=== PATIENT | male | born 1940 | race Caucasian/White ===

== ENCOUNTER 2020-09-06 09:13 | Outpatient (CLI) | payer MEDICARE, OTHER, SELFPAY ==
[2020-09-06 10:00] LABS: Basophils # 0.1 10^3/uL (0.0-0.1); Basophils % 1.1 %; Eosinophils # 0.1 10^3/uL (0.0-0.8); Eosinophils % 2.1 %; Hematocrit 41.1 % (42.0-52.0); Hemoglobin 13.3 g/dL (11.7-16.6); Lymphocytes # 1.6 10^3/uL (0.8-4.8); Lymphocytes % 25.7 %; Mean Corpuscular HGB Conc 32.4 g/dL (30.0-36.0); Mean Corpuscular Volume 83.5 fL (80-94); Mean Platelet Volume 11.4 fL (7.4-10.4); Monocytes # 0.4 10^3/uL (0.2-0.9); Monocytes % 5.9 %; Neutrophils # 3.91 10^3/uL (1.8-7.7); Neutrophils % 64.2 %; Nucleated Red Blood Cells % 0 %; Platelet Count 171 10^3/cmm (130-400); Red Blood Count 4.92 10^6/uL (4.1-5.3); Red Cell Distribution Width 13.8 % (12.1-15.1); White Blood Count 6.1 10^3/uL (4.0-10.0)
[2020-09-06 10:36] LABS: Slide Review Slide Review Perform
[2020-09-06 11:55] LABS: LAB Peripheral Smear Sent for Review
--- NOTE | 2020-09-06 13:36 | ONC CON_ITS ---
Dr. Henry New Patient Note Patient: Lawson Kerns Unit #: [id number]: 1940 Dicatated By: Ilia Henry M.D.Date of Visit: Sep 06, 2020 Onc MED New Patient/Consult Referring Physician: SYDNEY COOKP, COSTUMER History of Present Illness: Mr. Lawson Kerns, is a 80-year-old gentleman with a history of diabetes mellitus, CAD status post CABG, hypertension, hypothyroidism, BPH, found to have atypical lymphocytes reported in one of his follow-up CBC done in July 2020., His white blood count was 6.1, hemoglobin was 13.8 g hematocrit 41.8 platelets 172,000 and automated differential showed neutrophils 60% atypical lymphocytes 33%.. Patient denies any recent history of infection, sinus problem or urine tract infection patient denies any night sweats, denies any lymphadenopathy, denies any recurrent fever, patient denies any weight loss, denies any new medication.Quit smoking about 20 years ago but used to be a heavy smoker e.g. 5 packs a day for many years. Denies alcohol use. Past Medical History: Mr. Kerns's medical history consists of bph, cervical stenosis, chronic kidney disease (stage III), chronic low back pain, coronary artery disease, depression, gastroesophageal reflux disease, hyperlipidemia, hypertension, type II diabetes, history of MRSA in 2013, and myocardial infarction in 2004. Past Surgical History: Mr. Kerns's surgical/procedural history consists of coronary artery bypass in 2005. Medications: amLODIPine Besylate 1 Tablet (of 5 mg) Oral daily, Aspirin Low Dose Adult 1 Tablet (of 81 mg) Tablet, chewable Oral daily, Citalopram Hydrobromide 1 Tablet (of 20 mg) Oral daily, Famotidine 1 Tablet (of 40 mg) Oral daily, Ferrous Sulfate 1 Tablet (of 27 mg) Oral daily, Fish Oil 1 Capsule (of 1000 mg) Oral daily, hydroCHLOROthiazide 1 Tablet (of 12.5 mg) Oral daily, Lisinopril 1 Tablet (of 40 mg) Oral daily, Metoprolol Tartrate 0.5 Tablet (of 25 mg) Oral b.i.d., Simvastatin 1 Tablet (of 10 mg) Oral daily, traZODone HCl 1 Tablet (of 50 mg) Oral at bedtime, Vitamin C 2 Capsule (of 500 mg) Oral daily, Vitamin E 1 Capsule (of 400 Units) Oral daily Allergies: Amitriptyline HCl Social History: Mr. Kerns is . Mr. Kerns no longer smokes. Family History: There is no documented family history. Review Of Symptoms: Constitutional - Appetite is good and weight is stable. No fever, night sweats, or hot flashes. Energy level is fair, ENMT - No sinus congestion/drainage. No mouth sores. No sore throat or difficulty swallowing, Hematologic/Lymphatic - Positive for easy bruising, Respiratory - Positive for shortness of breath and cough. No pleuritic pain or hemoptysis, Cardiovascular - No angina pain. No palpitations, Gastrointestinal - No nausea or vomiting. No heartburn or acid reflux. Positive for diarrhea. No constipation. Positive for blood in the stool (Pt has hemorrhoids), Genitourinary (M) - No dysuria or hematuria. Positive for urinary frequency. No urgency or incontinence, Musculoskeletal - Positive for joint pain, Neurologic - No headache or dizziness. No numbness or tingling. No other focal neurologic symptoms, Psychiatric - No anxiety or depression. No insomnia. Vital Signs: Performed on Sep 06, 2020 10:56: 0, 0.00 (LOW), 97 %, 65 /min, 19 /min, 137/63 mm(hg), 97.3 F (LOW), and 189.6 lbs (HIGH). Performance Status: 0 - Fully active, able to carry on all predisease activities without restrictions. (ECOG) Physical Examination: ENMT - No mouth sores, no thrush, no jaundice, Hematologic/Lymphatic - No tender or palpable lymph nodes in the cervical, supraclavicular, axillary or inguinal area, Respiratory - Lungs are clear to auscultation, Cardiovascular - Regular rate and rhythm of heart, Abdomen - Soft, bowel sounds present, Extremities - No peripheral edema. Lab/Imaging: Most recent lab results are not available for this patient. Impression: Atypical lymphocytosis seen on differential on otherwise normal CBC done in July 2020. Etiology unclear could be reactive or subclinical viral infection or recovery from infection or medication or idiopathic or early lymphoproliferative disorder but less likely Diabetes mellitus CAD status post CABG Hypertension, hyperlipidemia, Plan: Discussed with patient regarding his labs from today white blood count 6.1 hemoglobin 13.3 hematocrit 41.1 its 171,000 with a normal differential, patient denies any B symptoms,No evidence of lymphadenopathy or abdominal fullness, denies any recent infections or new medication so etiology of atypical lymphocytosis seen on CBC done in the [facility] office, is not clear could be due to subclinical infection or viral infection or considering his age, evolving/early lymphoproliferative disorder cannot be ruled out but less likely., CBC also showed hemoglobin in normal range but hematocrit is slightly low, patient is on oral iron supplement, will monitor We will review his peripheral blood smear today and then patient will return to clinic in 1 month and we will repeat his CBC with differential. Signed By: Ilia Henry M.D. <<Signature on File>>
== END 2020-09-06 09:14 | disposition home or self-care (01) ==
LOC: ONCMED 09:18
PROVIDERS: PCP Family Medicine; Visit Provider Internal Medicine Hematology & Oncology
DX: D72.820 Lymphocytosis (symptomatic) (principal); E11.9 Type 2 diabetes mellitus without complications; I25.10 Atherosclerotic heart disease of native coronary artery without angina pectoris; Z95.1 Presence of aortocoronary bypass graft; I10 Essential (primary) hypertension; E78.5 Hyperlipidemia, unspecified; Z87.891 Personal history of nicotine dependence; Z79.899 Other long term (current) drug therapy
CPT/HCPCS: 36415; 80500; 85025; 99203

== ENCOUNTER 2020-10-17 08:37 | Outpatient (CLI) | payer MEDICARE, OTHER, SELFPAY ==
[2020-10-17 10:00] LABS: Basophils # 0.1 10^3/uL (0.0-0.1); Basophils % 1.7 %; Eosinophils # 0.3 10^3/uL (0.0-0.8); Eosinophils % 4.2 %; Hematocrit 43.5 % (42.0-52.0); Hemoglobin 14.2 g/dL (11.7-16.6); Lymphocytes % 30.8 %; Mean Corpuscular HGB Conc 32.6 g/dL (30.0-36.0); Mean Corpuscular Hemoglobin 27.3 pg (28.0-34.0); Mean Corpuscular Volume 83.5 fL (80-94); Mean Platelet Volume 12.4 fL (7.4-10.4); Monocytes # 0.4 10^3/uL (0.2-0.9); Monocytes % 6.2 %; Nucleated Red Blood Cells % 0 %; Platelet Count 173 10^3/cmm (130-400); Red Blood Count 5.21 10^6/uL (4.1-5.3); Red Cell Distribution Width 13.7 % (12.1-15.1); White Blood Count 6.4 10^3/uL (4.0-10.0)
--- NOTE | 2020-10-17 11:14 | ONC FU_ITS ---
Dr. Henry follow up note Patient: Lawson Kerns Unit #: [id number]: 1940 Dicatated By: Ilia Henry M.D.Date of Visit:Oct 17, 2020 Onc Med Follow-up/Prog Note History of Present Illness: Mr. Lawson Kerns, is a 80-year-old gentleman with a history of diabetes mellitus, CAD status post CABG, hypertension, hypothyroidism, BPH, found to have atypical lymphocytes reported in one of his follow-up CBC done in July 2020., His white blood count was 6.1, hemoglobin was 13.8 g hematocrit 41.8 platelets 172,000 and automated differential showed neutrophils 60% atypical lymphocytes 33%.. Patient denies any recent history of infection, sinus problem or urine tract infection patient denies any night sweats, denies any lymphadenopathy, denies any recurrent fever, patient denies any weight loss, denies any new medication.Quit smoking about 20 years ago but used to be a heavy smoker e.g. 5 packs a day for many years. Denies alcohol use. Came for follow-up, denies any specific complaints, no fever chills, no nausea or vomiting, no diarrhea constipation, no night sweats, no peripheral lymphadenopathy, no abdominal fullness Medications: amLODIPine Besylate 1 Tablet (of 5 mg) Oral daily, Aspirin Low Dose Adult 1 Tablet (of 81 mg) Tablet, chewable Oral daily, Citalopram Hydrobromide 1 Tablet (of 20 mg) Oral daily, Famotidine 1 Tablet (of 40 mg) Oral daily, Ferrous Sulfate 1 Tablet (of 27 mg) Oral daily, Fish Oil 1 Capsule (of 1000 mg) Oral daily, hydroCHLOROthiazide 1 Tablet (of 12.5 mg) Oral daily, Lisinopril 1 Tablet (of 40 mg) Oral daily, Metoprolol Tartrate 0.5 Tablet (of 25 mg) Oral b.i.d., Simvastatin 1 Tablet (of 10 mg) Oral daily, traZODone HCl 1 Tablet (of 50 mg) Oral at bedtime, Vitamin C 2 Capsule (of 500 mg) Oral daily, Vitamin E 1 Capsule (of 400 Units) Oral daily Allergies: Amitriptyline HCl Review of Systems: Constitutional - Appetite is good and weight is stable. No fever, night sweats, or hot flashes. Energy level is fair, ENMT - No sinus congestion/drainage. No mouth sores. No sore throat or difficulty swallowing, Hematologic/Lymphatic - Positive for easy bruising, Respiratory - Positive for shortness of breath and cough. No pleuritic pain or hemoptysis, Cardiovascular - No angina pain. No palpitations, Gastrointestinal - No nausea or vomiting. No heartburn or acid reflux. Positive for diarrhea. No constipation. Positive for blood in the stool (Pt has hemorrhoids), Genitourinary (M) - No dysuria or hematuria. Positive for urinary frequency. No urgency or incontinence, Musculoskeletal - Positive for joint pain, Neurologic - No headache or dizziness. Postivie for numbness or tingling in hands and feet, patient states this is normal for him. . No other focal neurologic symptoms, Psychiatric - No anxiety or depression. No insomnia. Vital Signs: Performed on Oct 17, 2020 10:42 Height - 68.00 in Weight - 189.4 lbs (LOW) BSA - 2.00 sq.m BMI - 28.80 Temperature - 97.6 F (LOW) Pulse - 60 /min Respiration - 18 /min BP - 133/66 mm(hg) O2 Sat - 98 % Pain - 0 Performance Status: 0 - Fully active, able to carry on all predisease activities without restrictions. (ECOG) Physical Examination: ENMT - No mouth sores, no thrush, no jaundice, no cervical or axillary lymphadenopathy, Respiratory - Lungs are clear to auscultation, Cardiovascular - Regular rate and rhythm of heart, Abdomen - Soft, bowel sounds present, Extremities - .No visible edema. Lab/Imaging: Test performed on Sep 06, 2020 09:49 WBC 6.1 10 3/uL RBC 4.92 10 6/uL HGB 13.3 g/dL HCT 41.1 % MCV 83.5 fL MCH 27.0 pg MCHC 32.4 g/dL RDW 13.8 % Platelet Count 171 10 3/cmm MPV 11.4 fL Neutrophils 3.91 10 3/uL Lymphocytes 1.6 10 3/uL Monocytes 0.4 10 3/uL Eosinophils 0.1 10 3/uL Basophils 0.1 10 3/uL Neutrophil % 64.2 % Lymphocyte % 25.7 % Monocyte % 5.9 % Eosinophil % 2.1 % Basophils % 1.1 % NRBC % 0 % CBC Slide Review Slide Review Perform SLIDE REVIEW AGREES WITH AUTOMATED RESULTS ST Impression: Atypical lymphocytosis seen on differential on otherwise normal CBC done in July 2020. Etiology unclear could be reactive or subclinical viral infection or recovery from infection or medication or idiopathic or early lymphoproliferative disorder but less likely Diabetes mellitus CAD status post CABG Hypertension, hyperlipidemia, Plan: Discussed with patient regarding his labs white blood count 6.4 hemoglobin 14.2 hematocrit 43.5 platelets 173,000 with a normal differential and peripheral blood smear reviewed by pathologist on September 06, 2020 shows normal white blood cell morphology Clinically, patient is doing well with no new signs symptoms his follow-up CBC shows white blood count in normal range with a normal differential and normal hemoglobin and platelet count. Patient has no B signs symptoms. No further work-up at this point rather observation, as etiology of mild atypical lymphocytosis could be due to underlying subclinical infection, which has resolved now and his repeat lab work-up showed normal CBC with a differential. Will see him back in 3 months with CBC with differential Signed By: Ilia Henry M.D. <<Signature on File>>
== END 2020-10-17 08:38 | disposition home or self-care (01) ==
LOC: ONCMED 08:39
PROVIDERS: PCP Family Medicine; Visit Provider Internal Medicine Hematology & Oncology
DX: D72.820 Lymphocytosis (symptomatic) (principal); E11.9 Type 2 diabetes mellitus without complications; I25.10 Atherosclerotic heart disease of native coronary artery without angina pectoris; Z95.1 Presence of aortocoronary bypass graft; I10 Essential (primary) hypertension; E78.5 Hyperlipidemia, unspecified
CPT/HCPCS: 36415; 85025; G0463

== ENCOUNTER 2021-01-16 10:15 | Outpatient (CLI) | payer MEDICARE, OTHER, SELFPAY ==
[2021-01-16 12:13] LABS: Basophils # 0.1 10^3/uL (0.0-0.1); Basophils % 1.1 %; Eosinophils # 0.2 10^3/uL (0.0-0.8); Hematocrit 40.5 % (42.0-52.0); Hemoglobin 13.4 g/dL (11.7-16.6); Lymphocytes # 1.3 10^3/uL (0.8-4.8); Lymphocytes % 24.8 %; Mean Corpuscular HGB Conc 33.1 g/dL (30.0-36.0); Mean Corpuscular Hemoglobin 27.3 pg (28.0-34.0); Mean Corpuscular Volume 82.7 fL (80-94); Mean Platelet Volume 12.1 fL (7.4-10.4); Monocytes # 0.3 10^3/uL (0.2-0.9); Monocytes % 5.9 %; Neutrophils # 3.36 10^3/uL (1.8-7.7); Neutrophils % 64.1 %; Nucleated Red Blood Cells % 0 %; Platelet Count 174 10^3/cmm (130-400); White Blood Count 5.3 10^3/uL (4.0-10.0)
[2021-01-16 12:36] LABS: Slide Review Slide Review Perform
--- NOTE | 2021-01-16 15:46 | ONC FU_ITS ---
Dr. Henry follow up note Patient: Lawson Kerns Unit #: [id number]: 1940 Dicatated By: Ilia Henry M.D.Date of Visit:Jan 16, 2021 Onc Med Follow-up/Prog Note History of Present Illness: Mr. Lawson Kerns, is a 80-year-old gentleman with a history of diabetes mellitus, CAD status post CABG, hypertension, hypothyroidism, BPH, found to have atypical lymphocytes reported in one of his follow-up CBC done in July 2020., His white blood count was 6.1, hemoglobin was 13.8 g hematocrit 41.8 platelets 172,000 and automated differential showed neutrophils 60% atypical lymphocytes 33%.. Patient denies any recent history of infection, sinus problem or urine tract infection patient denies any night sweats, denies any lymphadenopathy, denies any recurrent fever, patient denies any weight loss, denies any new medication.Quit smoking about 20 years ago but used to be a heavy smoker e.g. 5 packs a day for many years. Denies alcohol use. Came for follow-up, denies any specific complaints, no fever chills, no nausea or vomiting, no diarrhea constipation, no peripheral lymphadenopathy, no abdominal fullness, no night sweats, no weight loss, no recurrent fevers Medications: amLODIPine Besylate 1 Tablet (of 5 mg) Oral daily, Aspirin Low Dose Adult 1 Tablet (of 81 mg) Tablet, chewable Oral daily, Citalopram Hydrobromide 1 Tablet (of 20 mg) Oral daily, Famotidine 1 Tablet (of 40 mg) Oral daily, Ferrous Sulfate 1 Tablet (of 27 mg) Oral daily, Fish Oil 1 Capsule (of 1000 mg) Oral daily, hydroCHLOROthiazide 1 Tablet (of 12.5 mg) Oral daily, Lisinopril 1 Tablet (of 40 mg) Oral daily, Metoprolol Tartrate 0.5 Tablet (of 25 mg) Oral b.i.d., Simvastatin 1 Tablet (of 10 mg) Oral daily, traZODone HCl 1 Tablet (of 50 mg) Oral at bedtime, Vitamin C 2 Capsule (of 500 mg) Oral daily, Vitamin E 1 Capsule (of 400 Units) Oral daily Allergies: Amitriptyline HCl Review of Systems: Review of Systems is not available for this patient. Vital Signs: Performed on Jan 16, 2021 13:02 Height - 68.00 in Weight - 191.6 lbs (HIGH) BSA - 2.01 sq.m BMI - 29.13 Temperature - 99 F (HIGH) Pulse - 89 /min Respiration - 18 /min BP - 140/59 mm(hg) O2 Sat - 99 % Pain - 0 Fatigue - 0 Performance Status: 0 - Fully active, able to carry on all predisease activities without restrictions. (ECOG) Physical Examination: ENMT - No mouth sores, no thrush, no jaundice, no peripheral lymphadenopathy, Respiratory - Lungs are clear to auscultation, Cardiovascular - Regular rate and rhythm of heart, Abdomen - Soft, bowel sounds present, Extremities - No visible edema. Lab/Imaging: Test performed on Oct 17, 2020 08:50 WBC 6.4 10 3/uL RBC 5.21 10 6/uL HGB 14.2 g/dL HCT 43.5 % MCV 83.5 fL MCH 27.3 pg MCHC 32.6 g/dL RDW 13.7 % Platelet Count 173 10 3/cmm MPV 12.4 fL Neutrophils 3.60 10 3/uL Lymphocytes 2.0 10 3/uL Monocytes 0.4 10 3/uL Eosinophils 0.3 10 3/uL Basophils 0.1 10 3/uL Neutrophil % 56.0 % Lymphocyte % 30.8 % Monocyte % 6.2 % Eosinophil % 4.2 % Basophils % 1.7 % NRBC % 0 % Test performed on Sep 06, 2020 09:49 CBC Slide Review Slide Review Perform SLIDE REVIEW AGREES WITH AUTOMATED RESULTS ST Impression: Atypical lymphocytosis seen on differential on otherwise normal CBC done in July 2020. Etiology unclear could be reactive or subclinical viral infection or recovery from infection or medication or idiopathic or early lymphoproliferative disorder but less likely Diabetes mellitus CAD status post CABG Hypertension, hyperlipidemia, Plan: Discussed with patient regarding his labs white blood count 5.3 hemoglobin 13.4 hematocrit 40.5 platelets 174,000 neutrophils 64% lymphocyte 24.8% Clinically, patient doing well with no new signs symptom suggestive of lymphoproliferative disorder, his follow-up labs shows normal CBC with normal differential. Discussed with pathology, peripheral blood smear shows no abnormality, on physical exam no peripheral lymphadenopathy, no organomegaly. No further work-up at this point, will see him on as-needed basis. Signed By: Ilia Henry M.D. <<Signature on File>>
== END 2021-01-16 10:16 | disposition home or self-care (01) ==
LOC: ONCMED 10:18
PROVIDERS: PCP Family Medicine; Visit Provider Internal Medicine Hematology & Oncology
DX: D72.820 Lymphocytosis (symptomatic) (principal); E11.9 Type 2 diabetes mellitus without complications; I25.10 Atherosclerotic heart disease of native coronary artery without angina pectoris; I10 Essential (primary) hypertension; E78.5 Hyperlipidemia, unspecified; Z95.5 Presence of coronary angioplasty implant and graft
CPT/HCPCS: 36415; 85025; G0463

== ENCOUNTER 2021-03-01 08:07 | Outpatient (CLI) | payer OTHER, SELFPAY ==
--- NOTE | 2021-03-01 08:18 | XR_ITS ---
WS: [id number] Right hand, AP and lateral views, 03/01/2021 Clinical Data: R HAND FX Comparison: None. Findings: No fractures or dislocations are seen. The soft tissues are unremarkable. There is osteoa rthritic changes of the DIP and PIP joints of the second through fifth fingers of the right hand. Th ere is osteoarthritic change of the head of the right fifth metacarpal. There is degenerative change at the base of the right first metacarpal and trapezium.Soft tissues are normal. XR/XR hand RT 2V [id number] Impression: 1. Negative for fracture. 2. 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
== END 2021-03-01 08:08 | disposition home or self-care (01) ==
LOC: RAD 08:12
PROVIDERS: PCP Family Medicine; Visit Provider Orthopaedic Surgery
DX: S62.91XA Unspecified fracture of right hand, initial encounter for closed fracture (principal); X58.XXXA Exposure to other specified factors, initial encounter
CPT/HCPCS: 73120

== ENCOUNTER 2021-07-04 13:34 | Emergency (ER) | payer MEDICARE, OTHER, SELFPAY ==
--- NOTE | 2021-07-04 13:43 | ECG_ITS ---
[facility] Test Date: 2021-07-04 Pat Name: Lawson Kerns Department: Room: Gender: Male Lepidopterist: : 1940 Requested By: Flaca Stacy Order Number: [id number] Reading MD: KALYAN MORALES Measurements Intervals [place] Rate: 58 P: 47 FL: 206 QRS: 71 QRSD: 150 T: 32 QT: 431 QTc: 426 Interpretive Statements SINUS BRADYCARDIA RIGHT BUNDLE BRANCH BLOCK [120+ ms QRS DURATION, UPRIGHT V1, 40+ ms S IN I/aVL/V4/V5/V6] No previous ECG available for comparison Electronically Signed On 07-04-2021 21:07:40 CDT by KALYAN MORALES [email or web address]
--- NOTE | 2021-07-04 13:43 | XR_ITS ---
WS: [id number] Exam: XR chest 1V portable [id number] Date/Time of Exam: 07/04/2021 1:59 PM Reason For Exam: chest pain Comparison 03/13/2006. The lungs are hyperinflated and clear. Heart size is normal. The mediastinum is not widened. Signs of previous CABG surgery. No pleural effusions. XR/XR chest 1V portable [id number] IMPRESSION: 1. Pulmonary hyperinflation which may indicate obstructive lung disease. 2. No acute process noted.
[2021-07-04 13:49] VITALS: BP 165/77; PULSE 59; RESP 18; TEMP 36.7; O2SAT 97; BMI 28.3
--- NOTE | 2021-07-04 14:01 | ED_ITS ---
Documented by User: JEAN Medley 07/04/21 16:37 HPI - Chest Pain General: Chief Complaint: Chest Pain Stated Complaint: chest pain Time Seen by Provider: 07/04/21 13:52 Source: patient Mode of arrival: ambulatory Limitations: no limitations History of Present Illness: HPI narrative: Patient is an 80-year-old male who presents to ED today with a complaint of left sided chest pain with radiation into his back is been present over the past week. Patient states symptoms initially started while at rest. He states pain has been constant since onset and does not seem to be worsening. Pain does not seem to be affected by position, movement, or exertion. He does not complain of shortness of breath or difficulty breathing. Patient does have a history of coronary bypass surgery performed several years ago. He has a snapper on in [place]. Patient is not sure when his last echocardiogram was. He states he was seen by PCP and had abnormal blood work so was sent to the ED for further evaluation. states he has a hx of CHF. He does not complain of orthopnea or LE swelling. MD complaint: chest pain Pertinent past history: coronary artery disease Onset (ago): day(s) Timing of current episode: constant Onset: during rest Pain location: left chest Pain radiation: back and left scapula Relieving factors: nothing Exacerbating factors: nothing Associated symptoms: Reports no associated symptoms; Deny abdominal pain, dyspnea, fever(s), nausea, palpitations, syncope or vomiting Treatment prior to arrival: none Review of Systems Const: Denies: fever(s), chills, body aches, fatigue or malaise Eyes: Denies: change in vision or blurry vision ENMT: Denies: throat pain or odynophagia Card: Reports: chest pain; Denies: palpitations, irregular heart rhythm, edema, swelling of feet/ankles, lightheadedness, syncope, pre-syncope, dyspnea on exertion, orthopnea, leg pain with exertion or acrocyanosis Resp: Denies: dyspnea, productive cough, pain on inspiration, hemoptysis or chest congestion GI: Denies: abdominal pain, nausea, vomiting, heartburn or diarrhea : Denies: flank pain, difficulty urinating or dysuria Musc: Reports: back pain (reports chest pain radiates to back); Denies: neck pain, extremity pain, extremity swelling, joint pain or joint swelling Skin/Breast: Denies: rash Neuro: Denies: headache(s), numbness in extremities, weakness in extremities, sensory changes or dizziness PFSH ED PFSH: Medical History (Updated 07/04/21 @ 19:14 by LULU Stout) Benign non-nodular prostatic hyperplasia with lower urinary tract symptoms Cervical spondylosis Coronary artery disease Hyperlipidemia Left eye injury PVD (peripheral vascular disease) Urinary catheter insertion/adjustment/removal Urinary retention Surgical History Hx of eye surgery Hx of heart surgery Hx of neck surgery Family History Mother Stroke Father Heart disease Denies family history of Diabetes CAD (coronary artery disease) Clotting disorder Dementia Hyperlipidemia Psychiatric illness Chronic kidney disease (CKD) Suicide Anesthesia complication Bleeding disorder Family history of premature coronary artery disease Lung disease Cancer Hypertension Social History Smoking and tobacco status: never smoked Alcohol intake: never Current occupational status: retired Physical Exam Const: COMMON NORMALS: no acute distress, average body habitus, patient oriented x3, no limitations, healthy appearing, alert and well nourished GENERAL APPEARANCE: cooperative ORIENTATION/CONSCIOUSNESS: Yes awake, Yes oriented to person, Yes oriented to place and Yes oriented to time HENMT: COMMON NORMALS: normocephalic and atraumatic HEAD & SCALP: normocephalic and atraumatic Neck/C-Spine: GENERAL: Yes normal visual inspection and No JVD Chest: COMMONS NORMALS: normal inspection of the chest and normal palpation of entire chest wall Resp: COMMON NORMALS: normal respiratory effort and clear to auscultation bilaterally AUSCULTATION: clear to auscultation bilaterally Cardio: COMMON NORMALS: regular rate and regular rhythm RATE: regular rate RHYTHM: regular rhythm : COMMON NORMALS: Yes no CVA tenderness BLADDER/KIDNEY EXAM: Yes no CVA tenderness Back/Pelvis: COMMON NORMALS: no CVA tenderness, thoracic and lumbar spine normal to inspection, no thoracic nor lumbar tenderness and thoraco-lumbar ROM normal THORACIC SPINE/UPPER BACK: Yes normal to inspection LUMBAR SPINE/LOWER BACK: Yes normal to inspection Extremity: COMMON NORMALS: normal to inspection, full ROM, capillary refill normal, no clubbing, cyanosis or edema, no calf tenderness and no pedal edema Neuro: COMMON NORMALS: patient oriented x3 SENSORIUM/ORIENTATION: Yes alert, Yes oriented to person, Yes oriented to place and Yes oriented to time Skin: COMMON NORMALS: no rashes or lesions noted GENERAL SKIN EXAM: no rashes or lesions noted Course ED course: Results from [facility] faxed which showed a troponin of 49 Vital Signs: Vital signs: Vital Signs Temperature 98.1 F 07/04/21 13:49 Pulse Rate 58 L 07/04/21 18:50 Respiratory Rate 16 07/04/21 18:50 Blood Pressure 154/72 07/04/21 18:50 Pulse Oximetry 97 07/04/21 18:50 MDM - Chest Pain Lab Data: Labs: Lab Results 07/04/21 07/04/21 07/04/21 Range/Units 14:10 14:10 14:10 WBC 5.9 (4.0-10.0) 10^3/ uL RBC 5.07 (4.1-5.3) 10^6/u L Hgb 13.8 (11.7-16.6) g/dL Hct 43.0 (42.0-52.0) % MCV 84.8 (80-94) fl MCH 27.2 L (28.0-34.0) pg MCHC 32.1 (30.0-36.0) g/dL RDW 15.2 H (12.1-15.1) % Plt Count 179 (130-400) 10^3/c mm MPV 11.6 H (7.4-10.4) fL Neut % (Auto) 51.8 % Lymph % (Auto) 36.1 % [place] % (Auto) 7.0 % Eos % (Auto) 2.7 % Baso % (Auto) 1.5 % Neut # (Auto) 3.03 (1.8-7.7) 10^3/u L Lymph # (Auto) 2.1 (0.8-4.8) 10^3/u L [place] # (Auto) 0.4 (0.2-0.9) 10^3/u L Eos # (Auto) 0.2 (0.0-0.8) 10^3/u L Baso # (Auto) 0.1 (0.0-0.1) 10^3/u L Nucleated RBC % (a uto) 0 % Nucleated RBCs # 0.0 /100WBC Sodium Cancelled Potassium Cancelled Chloride Cancelled Carbon Dioxide Cancelled Anion Gap Cancelled BUN Cancelled Creatinine Cancelled GFR Calculation Cancelled Glucose Cancelled Calculated Osmolal ity Cancelled Calcium Cancelled Total Bilirubin Cancelled AST Cancelled ALT Cancelled Alkaline Phosphata se Cancelled Troponin T Baselin e Cancelled Troponin T 120 Min [place] (0-15) ng/L Delta Troponin T (0-10) ABS# NT-Pro-B Natriuret Pep Cancelled Total Protein Cancelled Albumin Cancelled Globulin Cancelled 07/04/21 07/04/21 07/04/21 Range/Units 15:44 15:44 17:55 WBC (4.0-10.0) 10^3/ uL RBC (4.1-5.3) 10^6/u L Hgb (11.7-16.6) g/dL Hct (42.0-52.0) % MCV (80-94) fl MCH (28.0-34.0) pg MCHC (30.0-36.0) g/dL RDW (12.1-15.1) % Plt Count (130-400) 10^3/c mm MPV (7.4-10.4) fL Neut % (Auto) % Lymph % (Auto) % [place] % (Auto) % Eos % (Auto) % Baso % (Auto) % Neut # (Auto) (1.8-7.7) 10^3/u L Lymph # (Auto) (0.8-4.8) 10^3/u L [place] # (Auto) (0.2-0.9) 10^3/u L Eos # (Auto) (0.0-0.8) 10^3/u L Baso # (Auto) (0.0-0.1) 10^3/u L Nucleated RBC % (a uto) % Nucleated RBCs # /100WBC Sodium 132 L Potassium 4.2 Chloride 97 L Carbon Dioxide 28 Anion Gap 11.2 BUN 22 Creatinine 1.2 GFR Calculation Not Reportable Glucose 83 Calculated Osmolal ity 276 L Calcium 8.8 Total Bilirubin 0.3 AST 20 ALT 20 Alkaline Phosphata se 50 Troponin T Baselin e 44 H Troponin T 120 Min [place] 42.76 H (0-15) ng/L Delta Troponin T -1.24 L (0-10) ABS# NT-Pro-B Natriuret Pep 530 H Total Protein 7.0 Albumin 4.0 Globulin 3.0 Imaging Data^: CXR: Radiologist's impression: [id number] [place], [place] [address]DNtr ReportSigned Patient: Lawson Kerns AUnit #: [id number]: 1940cct#:[id number]/Sex: 80 / MADM Date: 07/04/21Loc: ERRoom/Bed:Attending Dr: Ordering Provider/Ordering MD: Flaca Stacy Date of Service: 07/04/21 Procedure(s): XR chest 1V portable [id number] Accession Number(s): [id number] Report Number: [id number] WS: [id number] Exam: XR chest 1V portable [id number] Date/Time of Exam: 07/04/2021 1:59 PM Reason For Exam: chest pain Comparison 03/13/2006. The lungs are hyperinflated and clear. Heart size is normal. The mediastinum is not widened. Signs of previous CABG surgery. No pleural effusions. XR/XR chest 1V portable [id number] IMPRESSION: 1. Pulmonary hyperinflation which may indicate obstructive lung disease. 2. No acute process noted. Dictated By:Mariza Moody By:Mariza Moody Date/Time:07/04/21 1405DD/ 1404 EKG Data^: EKG 1: EKG interpretation date: 07/04/21 EKG interpretation time: 13:46 Interpretation: Sinus bradycardia Rate [address] elevation or depression changes noted Also signed off by Dr. Salinas EKG 2: EKG interpretation date: 07/04/21 EKG interpretation time: 15:43 Interpretation: Sinus bradycardia Rate [address] elevation or depression changes noted No acute changes were noted from EKG performed earlier on same visit Discharge Plan Discharge Patient Disposition: Home Clinical Impression: Peripheral arterial disease Chest pain Qualifiers: Chest pain type: unspecified Qualified Code(s): R07.9 - Chest pain, unspecified Condition: Stable Prescriptions: No Action citalopram 20 mg tablet 20 mg PO DAILY RF: 0 hydrochlorothiazide 12.5 mg capsule 12.5 mg PO QAM RF: 0 vitamin E (dl, acetate) 400 unit capsule 400 unit PO QAM RF: 0 ferrous sulfate [iron] 325 mg (65 mg iron) tablet 325 mg PO QAM RF: 0 cinnamon bark [Cinnamon] 500 mg capsule 500 mg PO QAM RF: 0 omega-3 fatty acids [Fish Oil Concentrate] 1,000 mg capsule 1,000 mg PO QAM RF: 0 amlodipine 5 mg tablet 5 mg PO QAM RF: 0 trazodone 50 mg tablet 25 mg PO BEDTIME RF: 0 nitroglycerin [Nitrostat] 0.4 mg tablet, sublingual 0.4 mg SUBLINGUAL Q5M PRN (Reason: Chest Pain) RF: 0 Lantus Solostar U-100 Insulin 100 unit/mL (3 mL) insulin pen 30 unit SUBCUT QAM RF: 0 lisinopril 40 mg tablet 40 mg PO QAM RF: 0 aspirin 81 mg tablet,delayed release (DR/EC) 81 mg PO QAM RF: 0 Apple Cider Vinegar Liquid 2 tbsp PO QAM RF: 0 albuterol sulfate 2.5 mg /3 mL (0.083 %) Solution For Nebulization 2.5 mg INHALATION Q4H PRN (Reason: Shortness Of Breath) RF: 0 famotidine 40 mg tablet 40 mg PO BEDTIME RF: 0 simvastatin 10 mg tablet 10 mg PO QAM RF: 0 Vitamin C 500 mg Tablet 500 mg PO QAM RF: 0 ProAir HFA 90 mcg/actuation Hfa Aerosol Inhaler 2 puff INHALATION QID PRN (Reason: Shortness Of Breath) RF: 0 aloe vera 25 mg Capsule 25 mg PO QAM RF: 0 metoprolol tartrate 25 mg tablet 12.5 mg PO BID RF: 0 Discharge Orders: Discharge ED (Routine); Ordered 07/04/21 Ordered By: Bartolo Silverio Referrals: Cindy Schroeder DO [Primary Care Provider] - Discharge Diet: Usual diet Discharge Activity: Increase activity as tolerated Patient Instructions: Chest Pain (ED), Opioid Safety Activity Restrictions/Additional Instructions: Home and rest. Continue with routine medications and care plan. Follow-up with primary care as needed. Contact snapper on office tomorrow for follow-up appointment. Return to the ER for worsening symptoms or new concerns. Sign Out Sign Out Data: Patient Sign Out occurred on 07/04/21 at 17:13. Patient's care was discussed, and care was transferred from to Bartolo Silverio. Coding Level of Care Code ED Motorcycle Police Officer for Chg Fwd Exam Comprehensive Documented by User: LULU Stout 07/04/21 19:19 HPI - Chest Pain General: Chief Complaint: Chest Pain Stated Complaint: chest pain Time Seen by Provider: 07/04/21 13:52 PFSH ED PFSH: Medical History (Updated 07/04/21 @ 19:14 by LULU Stout) Benign non-nodular prostatic hyperplasia with lower urinary tract symptoms Cervical spondylosis Coronary artery disease Hyperlipidemia Left eye injury PVD (peripheral vascular disease) Urinary catheter insertion/adjustment/removal Urinary retention Surgical History Hx of eye surgery Hx of heart surgery Hx of neck surgery Family History Mother Stroke Father Heart disease Denies family history of Diabetes CAD (coronary artery disease) Clotting disorder Dementia Hyperlipidemia Psychiatric illness Chronic kidney disease (CKD) Suicide Anesthesia complication Bleeding disorder Family history of premature coronary artery disease Lung disease Cancer Hypertension Social History Smoking and tobacco status: never smoked Alcohol intake: never Current occupational status: retired Course Vital Signs: Vital signs: Vital Signs Temperature 98.1 F 07/04/21 13:49 Pulse Rate 58 L 07/04/21 18:50 Respiratory Rate 16 07/04/21 18:50 Blood Pressure 154/72 07/04/21 18:50 Pulse Oximetry 97 07/04/21 18:50 MDM - Chest Pain MDM Narrative: Medical decision making narrative: Patient comes in today with some episodes of chest discomfort on and off for the last week. Patient reports that he had seen his primary care and they done some lab work that showed a troponin of 49. Patient was referred to the ER for further evaluation regarding his chest discomfort. On exam patient appears well. Heart rates regular and mildly bradycardic in the 50s. No edema is noted in the extremities and lungs are clear to auscultation. Differential diagnosis include ACS, CHF, stable angina. No changes were noted in the patient's troponin they stayed in the 40s with a negative delta curve. Laboratory values otherwise were normal. Chest x- ray was normal. BNP was slightly elevated at 500. No signs of CHF was noted at this time. I reviewed the exam with patient with recommendations for follow-up with snapper on. Patient reports he will contact his snapper on tomorrow for follow-up appointment. Patient agreed to this plan and need for follow-up or return to the ER for worsening symptoms. Lab Data: Labs: Lab Results 07/04/21 07/04/21 07/04/21 Range/Units 14:10 14:10 14:10 WBC 5.9 (4.0-10.0) 10^3/ uL RBC 5.07 (4.1-5.3) 10^6/u L Hgb 13.8 (11.7-16.6) g/dL Hct 43.0 (42.0-52.0) % MCV 84.8 (80-94) fl MCH 27.2 L (28.0-34.0) pg MCHC 32.1 (30.0-36.0) g/dL RDW 15.2 H (12.1-15.1) % Plt Count 179 (130-400) 10^3/c mm MPV 11.6 H (7.4-10.4) fL Neut % (Auto) 51.8 % Lymph % (Auto) 36.1 % [place] % (Auto) 7.0 % Eos % (Auto) 2.7 % Baso % (Auto) 1.5 % Neut # (Auto) 3.03 (1.8-7.7) 10^3/u L Lymph # (Auto) 2.1 (0.8-4.8) 10^3/u L [place] # (Auto) 0.4 (0.2-0.9) 10^3/u L Eos # (Auto) 0.2 (0.0-0.8) 10^3/u L Baso # (Auto) 0.1 (0.0-0.1) 10^3/u L Nucleated RBC % (a uto) 0 % Nucleated RBCs # 0.0 /100WBC Sodium Cancelled Potassium Cancelled Chloride Cancelled Carbon Dioxide Cancelled Anion Gap Cancelled BUN Cancelled Creatinine Cancelled GFR Calculation Cancelled Glucose Cancelled Calculated Osmolal ity Cancelled Calcium Cancelled Total Bilirubin Cancelled AST Cancelled ALT Cancelled Alkaline Phosphata se Cancelled Troponin T Baselin e Cancelled Troponin T 120 Min [place] (0-15) ng/L Delta Troponin T (0-10) ABS# NT-Pro-B Natriuret Pep Cancelled Total Protein Cancelled Albumin Cancelled Globulin Cancelled 07/04/21 07/04/21 07/04/21 Range/Units 15:44 15:44 17:55 WBC (4.0-10.0) 10^3/ uL RBC (4.1-5.3) 10^6/u L Hgb (11.7-16.6) g/dL Hct (42.0-52.0) % MCV (80-94) fl MCH (28.0-34.0) pg MCHC (30.0-36.0) g/dL RDW (12.1-15.1) % Plt Count (130-400) 10^3/c mm MPV (7.4-10.4) fL Neut % (Auto) % Lymph % (Auto) % [place] % (Auto) % Eos % (Auto) % Baso % (Auto) % Neut # (Auto) (1.8-7.7) 10^3/u L Lymph # (Auto) (0.8-4.8) 10^3/u L [place] # (Auto) (0.2-0.9) 10^3/u L Eos # (Auto) (0.0-0.8) 10^3/u L Baso # (Auto) (0.0-0.1) 10^3/u L Nucleated RBC % (a uto) % Nucleated RBCs # /100WBC Sodium 132 L Potassium 4.2 Chloride 97 L Carbon Dioxide 28 Anion Gap 11.2 BUN 22 Creatinine 1.2 GFR Calculation Not Reportable Glucose 83 Calculated Osmolal ity 276 L Calcium 8.8 Total Bilirubin 0.3 AST 20 ALT 20 Alkaline Phosphata se 50 Troponin T Baselin e 44 H Troponin T 120 Min [place] 42.76 H (0-15) ng/L Delta Troponin T -1.24 L (0-10) ABS# NT-Pro-B Natriuret Pep 530 H Total Protein 7.0 Albumin 4.0 Globulin 3.0 Discharge Plan Discharge Patient Disposition: Home Clinical Impression: Peripheral arterial disease Chest pain Qualifiers: Chest pain type: unspecified Qualified Code(s): R07.9 - Chest pain, unspecified Condition: Stable Prescriptions: No Action citalopram 20 mg tablet 20 mg PO DAILY RF: 0 hydrochlorothiazide 12.5 mg capsule 12.5 mg PO QAM RF: 0 vitamin E (dl, acetate) 400 unit capsule 400 unit PO QAM RF: 0 ferrous sulfate [iron] 325 mg (65 mg iron) tablet 325 mg PO QAM RF: 0 cinnamon bark [Cinnamon] 500 mg capsule 500 mg PO QAM RF: 0 omega-3 fatty acids [Fish Oil Concentrate] 1,000 mg capsule 1,000 mg PO QAM RF: 0 amlodipine 5 mg tablet 5 mg PO QAM RF: 0 trazodone 50 mg tablet 25 mg PO BEDTIME RF: 0 nitroglycerin [Nitrostat] 0.4 mg tablet, sublingual 0.4 mg SUBLINGUAL Q5M PRN (Reason: Chest Pain) RF: 0 Lantus Solostar U-100 Insulin 100 unit/mL (3 mL) insulin pen 30 unit SUBCUT QAM RF: 0 lisinopril 40 mg tablet 40 mg PO QAM RF: 0 aspirin 81 mg tablet,delayed release (DR/EC) 81 mg PO QAM RF: 0 Apple Cider Vinegar Liquid 2 tbsp PO QAM RF: 0 albuterol sulfate 2.5 mg /3 mL (0.083 %) Solution For Nebulization 2.5 mg INHALATION Q4H PRN (Reason: Shortness Of Breath) RF: 0 famotidine 40 mg tablet 40 mg PO BEDTIME RF: 0 simvastatin 10 mg tablet 10 mg PO QAM RF: 0 Vitamin C 500 mg Tablet 500 mg PO QAM RF: 0 ProAir HFA 90 mcg/actuation Hfa Aerosol Inhaler 2 puff INHALATION QID PRN (Reason: Shortness Of Breath) RF: 0 aloe vera 25 mg Capsule 25 mg PO QAM RF: 0 metoprolol tartrate 25 mg tablet 12.5 mg PO BID RF: 0 Discharge Orders: Discharge ED (Routine); Ordered 07/04/21 Ordered By: Bartolo Silverio Referrals: Cindy Schroeder DO [Primary Care Provider] - Discharge Diet: Usual diet Discharge Activity: Increase activity as tolerated Patient Instructions: Chest Pain (ED), Opioid Safety Activity Restrictions/Additional Instructions: Home and rest. Continue with routine medications and care plan. Follow-up with primary care as needed. Contact snapper on office tomorrow for follow-up appointment. Return to the ER for worsening symptoms or new concerns. Sign Out Sign Out Data: Patient Sign Out occurred on 07/04/21 at 17:13. Patient's care was discussed, and care was transferred from to Bartolo Silverio. Coding Level of Care Code ED Motorcycle Police Officer for Chg Fwd Exam Comprehensive
[2021-07-04 14:26] LABS: Basophils # 0.1 10^3/uL (0.0-0.1); Basophils % 1.5 %; Eosinophils # 0.2 10^3/uL (0.0-0.8); Eosinophils % 2.7 %; Hemoglobin 13.8 g/dL (11.7-16.6); Lymphocytes # 2.1 10^3/uL (0.8-4.8); Lymphocytes % 36.1 %; Mean Corpuscular HGB Conc 32.1 g/dL (30.0-36.0); Mean Corpuscular Hemoglobin 27.2 pg (28.0-34.0); Mean Corpuscular Volume 84.8 fl (80-94); Mean Platelet Volume 11.6 fL (7.4-10.4); Monocytes # 0.4 10^3/uL (0.2-0.9); Neutrophils # 3.03 10^3/uL (1.8-7.7); Neutrophils % 51.8 %; Nucleated Red Blood Cells % 0 %; Platelet Count 179 10^3/cmm (130-400); Positive M 1; Red Blood Count 5.07 10^6/uL (4.1-5.3); Red Cell Distribution Width 15.2 % (12.1-15.1); White Blood Count 5.9 10^3/uL (4.0-10.0)
[2021-07-04 14:52] VITALS: BP 126/66; PULSE 54; RESP 18; O2SAT 97
[2021-07-04 15:21] LABS: Slide Review Slide Review Perform
--- NOTE | 2021-07-04 15:43 | ECG_ITS ---
[facility] Test Date: 2021-07-04 Pat Name: Lawson Kerns Department: Room: Gender: Male Storeroom Attendant: : 1940 Requested By: Flaca Stacy Order Number: [id number] Reading MD: KALYAN MORALES Measurements Intervals [place] Rate: 54 P: 58 SD: 216 QRS: 72 QRSD: 149 T: 32 QT: 426 QTc: 405 Interpretive Statements SINUS BRADYCARDIA WITH FIRST DEGREE AV BLOCK RIGHT BUNDLE BRANCH BLOCK [120+ ms QRS DURATION, UPRIGHT V1, 40+ ms S IN I/aVL/V4/V5/V6] Compared to ECG 07/04/2021 13:46:06 First degree AV block now present Electronically Signed On 07-04-2021 21:09:49 CDT by KALYAN MORALES [id number]
[2021-07-04 16:00] VITALS: BP 158/67; PULSE 51; RESP 18; O2SAT 98
[2021-07-04 16:20] LABS: Troponin(5th) Baseline 44 ng/L (0-15)
[2021-07-04 16:28] LABS: Alanine Aminotransferase 20 U/L (0-41); Alkaline Phosphatase 50 IU/L (40-130); Anion Gap 11.2 (5-19); Aspartate Amino Transferase 20 U/L (0-40); Blood Urea Nitrogen 22 mg/dL (8-23); Calcium 8.8 mg/dL (8.5-10.5); Carbon Dioxide 28 mmol/L (22-29); Chloride 97 mmol/L (98-107); Creatinine Clr Calc Pharmacy 50.2044; Glucose 83 mg/dL (65-115); NT Pro B Type Natriuretic Pept 530 pg/mL (0-450); Osmolality Calculated 276 mOsm/kg (285-295); Potassium 4.2 mmol/L (3.5-5.1); Sodium 132 mmol/L (136-145); Total Bilirubin 0.3 mg/dL (0.15-1.2)
[2021-07-04 18:47] LABS: Troponin 5 2HR 42.76 ng/L (0-15)
[2021-07-04 18:50] VITALS: BP 154/72; PULSE 58; RESP 16; O2SAT 97
[2021-07-04 19:09] LABS: Troponin 5 2HR Delta -1.24 ABS# (0-10)
== END 2021-07-04 19:28 | disposition home or self-care (01) ==
PROVIDERS: Physician Assistant; Emergency Provider Nurse Practitioner Family; PCP Family Medicine
DX: R07.9 Chest pain, unspecified (principal); I73.9 Peripheral vascular disease, unspecified; E78.5 Hyperlipidemia, unspecified; I25.10 Atherosclerotic heart disease of native coronary artery without angina pectoris; Z79.82 Long term (current) use of aspirin; Z82.49 Family history of ischemic heart disease and other diseases of the circulatory system
CPT/HCPCS: 71045; 80053; 83880; 84484; 85025; 93005; 99284

== ENCOUNTER 2021-07-18 08:03 | Outpatient (CLI) | payer MEDICARE, OTHER, SELFPAY ==
[2021-07-18 08:19] VITALS: BMI 27.6
--- NOTE | 2021-07-18 08:19 | ECG_ITS ---
[facility] Test Date: 2021-07-18 Pat Name: Lawson Kerns Department: Room: Gender: Male Computer Systems Security Administrator: : 1940 Requested By: Es Jacques Order Number: [id number] Guardado MD: Reshma Crooks M.D. Interpretive Statements NAME OF STUDY: LEXISCAN SESTAMIBI STRESS TEST INDICATION: Stable Angina PROCEDURE: At the baseline, the blood pressure was 164/78 mmHg, oxygen saturation 98% with a heart rate of 50 bpm. The electrocardiogram showed sinus bradycardia, rightward axis. Right bundle branch block. The Lexiscan was infused over a period of 20 seconds. A total of 0.4 milligrams of Lexiscan was infused. The stress phase was continued for a total of 5 minutes. Heart rate at the end of the stress phase was 68 bpm with a blood pressure of 116/66 mmHg. The EKG at the peak infusion revealed sinus rhythm with no significant ST-T wave changes. The study was terminated due to protocol completion. Sestamibi was injected 20 seconds after the Lexiscan infusion. Blood pressure at the end of the recovery phase was 158/68 mmHg, oxygen saturation 97% with a heart rate of 66 beats per minute. CONCLUSION: 1. No significant EKG changes with the LexiScan infusion. 2. No LexiScan induced chest pain or cardiac arrhythmia. 3. Normal blood pressure and heart rate response. 4. Sestamibi/sestamibi perfusion scan pending; see separate report. RESULTS TO KIMANI JACQUES INFORMATICS NURSE Electronically Signed On 07-20-2021 13:20:57 CDT by Reshma Crooks M.D. [email or web address]/[id number]
--- NOTE | 2021-07-18 08:20 | NMCV_ITS ---
NM kimi perf SPECT r/s* [id number] Lawson Kerns Age: 80 Gender: M : 1940 Exam Date: 07/18/2021 09:34 Ordering Phys: Es Shaw XX Technologist: RADHA Soares Exam Location: [facility] Indications: STABLE ANGINA STRESS TEST Please see separate stress test report in [facility] for full findings IMAGE PROTOCOL Rest/Stress 1 Lexiscan Day Radiopharmaceutical Dose (mCi) Administration Site Administered by Rest: Tc-99m 10.8 IV RADHA Groves Sestamibi Stress:Tc-99m 32.7 IV RADHA Soares Sestamiesthela Rest: 18-Jul-2021 60 Discovery 630 Stress: 18-Jul-2021 30 Discovery 630 0.4mg Lexiscan. Images obtained in supine and prone position. SPECT RESULTS Technical Quality: Excellent Raw Data Analysis: Normal Image Corrections: No attenuation or motion correction applied Summed Stress Score: 1 Summed Rest Score: 4 Summed Difference Score: 0 PERFUSION FINDINGS Small size perfusion abnormality of mild severity of apical anterior, apical septal and apical [place] on rest images with somewhat improved tracer uptake on stress images. FUNCTIONAL RESULTS (calculated via Gated SPECT) Stress Image LV EF (%): 48 Stress EDV (mL):111 TID: 1.09 Stress ESV (mL):58 FUNCTIONAL FINDINGS: The left ventricle is normal in size. Transient Ischemia Dilatation of 1.1. There is mildly reduced left ventricular global systolic function. The left ventricular ejection fraction is mildly reduced with a value of 48%. There is mildly decreased global wall thickening. IMPRESSIONS 1. Small sized perfusion abnormality of mild severity of apical anterior, apical septal and apical fulton on rest images with somewhat improved tracer uptake on stress images. 2. This may represent attenuation artifact or old myocardial infarction in left anterior descending artery territory. 3. The left ventricular ejection fraction is mildly reduced with a value of 48%. 4. There is mildly decreased global wall thickening. 5. No coronary ischemia based on the study. Reshma Crooks MD (Electronically Signed) Final Date: 20 July 2021 13:29 S
[2021-07-18] MEDS: regadenoson 0.4 Mg/5 ml Syringe IVP (10:22)
[2021-07-18 10:32] VITALS: BP 152/68; PULSE 72
== END 2021-07-18 08:04 | disposition home or self-care (01) ==
LOC: RAD 08:06 → CDL 08:17
PROVIDERS: PCP Family Medicine; Visit Provider Nurse Practitioner Acute Care
DX: I20.9 Angina pectoris, unspecified (principal); R94.39 Abnormal result of other cardiovascular function study
CPT/HCPCS: 78452; 93017; A9500; J2785

== ENCOUNTER 2022-11-03 12:44 | Emergency (ER) | payer MEDICARE, OTHER, SELFPAY ==
[2022-11-03] VITALS (8 sets, daily range): BP systolic 59–65; BP diastolic 44–48; PULSE 52–101; RESP 6–22; O2SAT 58; BMI 33.4
--- NOTE | 2022-11-03 12:54 | XRR_ITS ---
PROCEDURE INFORMATION: Exam: XR Chest Exam date and time: 11/03/2022 12:58 PM Age: 82 years old Clinical indication: Device placement; Ett placement (vent status); Additional info: Code TECHNIQUE: Imaging protocol: Radiologic exam of the chest. Views: 1 view. COMPARISON: CR XR chest 1V portable [id number] 07/04/2021 1:53 PM FINDINGS: Tubes, catheters and devices: Endotracheal tube 5 cm above the erick. Lungs: Unremarkable. No consolidation. Pleural spaces: Unremarkable. No pleural effusion. No pneumothorax. Heart/Mediastinum: Unremarkable. No cardiomegaly. Bones/joints: Unremarkable. XR/XR chest 1V portable [id number] IMPRESSION: No acute findings.
[2022-11-03 12:55] LABS: Glucose Point of Care 300 mg/dL (70-110)
--- NOTE | 2022-11-03 12:56 | ECG_ITS ---
[facility] Test Date: 2022-11-03 Pat Name: Lawson Kerns Department: Room: Gender: Male [employer] Teacher: : 1940 Requested By: Leon Lowery Order Number: [id number] Debby MD: Reshma Crooks M.D. Measurements Intervals [place] Rate: 113 P: 0 VT: 0 QRS: 128 QRSD: 206 T: 23 QT: 414 QTc: 569 Interpretive Statements ATRIAL FIBRILLATION WITH RAPID VENTRICULAR RESPONSE RIGHT BUNDLE BRANCH BLOCK [120+ ms QRS DURATION, UPRIGHT V1, 40+ ms S IN I/aVL/V4/V5/V6] LEFT POSTERIOR FASCICULAR BLOCK [QRS AXIS > 109, INFERIOR Q] MARKED ST DEPRESSION, CONSIDER SUBENDOCARDIAL INJURY Compared to ECG 07/04/2021 15:43:19 Left posterior fascicular block now present ST (T wave) deviation now present Sinus bradycardia no longer present First degree AV block no longer present Electronically Signed On 11-04-2022 6:01:12 UPPER CASER by Reshma Crooks M.D. [email or web address]
[2022-11-03] MEDS: sodium chloride 0.9% 1,000 ML 999 ML IV (12:58)
--- NOTE | 2022-11-03 13:04 | ED_ITS ---
HPI - CPR General: Chief Complaint: Cardiac Arrest/CPR Stated Complaint: CODE BLUE Time Seen by Provider: 11/03/22 12:54 Limitations: other (cardiac arrest) History of Present Illness: Mr Kerns is an 82-year-old gentleman with, per chart review diabetes and heart disease, presenting to the emergency department via air EMS in cardiac arrest. Per EMS report patient began feeling ill yesterday and this morning had significant decrease in level of consciousness. For them he would regard and look at them however appeared to have strokelike symptoms. Shortly after the patient was loaded and on his way to [place] via helicopter he experienced cardiac arrest and was diverted to our facility. High-quality CPR was performed and intubation was attempted however unsuccessful subsequently I gel was placed and the patient received 1 mg epinephrine. Upon arrival in the emergency department CPR is ongoing. Review of Systems General: Reports: ROS unobtainable due to medical condition [facility] ED PFSH: Medical History (Updated 11/11/22 @ 00:00 by KAYLI Cortes) Benign non-nodular prostatic hyperplasia with lower urinary tract symptoms Cervical spondylosis Coronary artery disease Hyperlipidemia Left eye injury PVD (peripheral vascular disease) Urinary catheter insertion/adjustment/removal Urinary retention Surgical History Hx of eye surgery Hx of heart surgery Hx of neck surgery Family History Mother Stroke Father Heart disease Denies family history of Diabetes CAD (coronary artery disease) Clotting disorder Dementia Hyperlipidemia Psychiatric illness Chronic kidney disease (CKD) Suicide Anesthesia complication Bleeding disorder Family history of premature coronary artery disease Lung disease Cancer Hypertension Social History Alcohol intake: never Current occupational status: retired Physical Exam Const: GENERAL APPEARANCE: well developed and ill appearing ORIENTATION/CONSCIOUSNESS: Yes Other orientation findings (Cardiac arrest) HENMT: COMMON NORMALS: normocephalic and atraumatic HEAD & SCALP: normocephalic and atraumatic Eye: COMMON NORMALS: conjunctivae normal CONJUNCTIVA: Yes conjunctivae normal SCLERA: sclerae normal Neck/C-Spine: COMMON NORMALS: supple GENERAL: Yes trachea midline Resp: OTHER: Patient is apneic and ventilated via eye gel and [id number] Cardio: OTHER: Patient is pulseless with cool pale extremities GI: COMMON NORMALS: Soft to palpation PALPATION: Yes Soft to palpation and No Rigid due to palpation Extremity: NARRATIVE EXTREMITY EXAM: Left forearm contusion GENERAL: Yes normal exam except as noted and No edema Neuro: SENSORIUM/ORIENTATION: Yes Orientation impaired and Yes obtunded OTHER: Cardiac arrest, no purposeful movements Procedures Intubation Time out performed: No (Performed under emergent circumstances, cardiac arrest) Laryngoscope: fiber optic video scope ET Tube Size: 8 ET Tube Uncuffed: No Tube Secured Depth (cm): 23 Tube Secured Location: lips Tube Placement Confirmation: visualized tube passing through cords, equal breath sounds bilaterally and no breath sounds over epigastrium Patient Tolerated Procedure: other (Cardiac arrest) Intubation Complications: none Course Vital Signs: Vital signs: Vital Signs Pulse Rate 52 L 11/03/22 13:25 Respiratory Rate 6 L 11/03/22 13:25 Blood Pressure 59/44 11/03/22 13:10 Pulse Oximetry 58 L 11/03/22 13:10 Fraction of Inspir ed Oxygen 100 11/03/22 13:09 MDM - Cardiac Arrest/CPR Medical Decision Making 82-year-old gentleman presenting in cardiac arrest. Upon initial arrival patient is still in a cardiac arrest with PEA as underlying rhythm. High-quality CPR was continued and medications administered with ACLS guidance. See nursing documentation of code. Patient was intubated as noted in procedure note, significant secretions in the posterior pharynx which were suctioned. ROSC was achieved demonstrating a wide-complex but organized rhythm likely bundle branch block. The patient remained hypotensive and Levophed was ordered with supplementation of push dose epinephrine. Chest x-ray reviewed and ET tube in satisfactory position. Prehospital labs obtained and sent to lab Levophed was uptitrated and despite this patient remained hypotensive. He subsequently became bradycardic and pulses were again lost. [id number] ultrasound demonstrated continued very weak however organized cardiac activity likely indicating that decreased cardiac output is responsible for hypotension. CPR was resumed see additional nursing documentation. I discussed the patient's condition earlier with the patient's daughter and at that time we had achieved ROSC however I rediscussed the case with her. The patient's family is quite a distance away. Despite continued resuscitative efforts patient remained in PEA. [id number] ultrasound of the heart was performed serially and cardiac activity no longer was organized or meaningful for cardiac output. There is evidence of blood st agnation within the heart chambers. Unfortunately I believe that no amount of continued CPR or other heroic measures would restore cardiac activity and meaningful neurologic function due to prolonged downtime and neurologic symptoms preceding cardiac arrest. Time of 1340. I updated family upon arrival. I offered my condolences. Medical Records I reviewed the patient's medical records. Lab Data I reviewed the patient's lab results. 11/03/22 12:52 11/03/22 12:52 Radiology Impressions Chest X-Ray 11/03/22 12:54 IMPRESSION: No acute findings. Laboratory Results WBC 14.5 10^3/uL (4.0-10.0) H 11/03/22 12:52 RBC 7.21 10^6/uL (4.1-5.3) H 11/03/22 12:52 Hgb 20.2 g/dL (11.7-16.6) H 11/03/22 12:52 Hct 63.1 % (42.0-52.0) H 11/03/22 12:52 MCV 87.5 fl (80-94) 11/03/22 12:52 MCH 28.0 pg (28.0-34.0) 11/03/22 12:52 MCHC 32.0 g/dL (30.0-36.0) 11/03/22 12:52 RDW 16.9 % (12.1-15.1) H 11/03/22 12:52 Plt Count 227 10^3/cmm (130-400) 11/03/22 12:52 MPV 12.6 fL (7.4-10.4) H 11/03/22 12:52 Neut % (Auto) 82.5 % 11/03/22 12:52 Lymph % (Auto) 11.2 % 11/03/22 12:52 Yancey % (Auto) 3.0 % 11/03/22 12:52 Eos % (Auto) 1.2 % 11/03/22 12:52 Baso % (Auto) 0.3 % 11/03/22 12:52 Neut # (Auto) 11.95 10^3/uL (1.8-7.7) H 11/03/22 12:52 Lymph # (Auto) 1.6 10^3/uL (0.8-4.8) 11/03/22 12:52 Yancey # (Auto) 0.4 10^3/uL (0.2-0.9) 11/03/22 12:52 Eos # (Auto) 0.2 10^3/uL (0.0-0.8) 11/03/22 12:52 Baso # (Auto) 0.1 10^3/uL (0.0-0.1) 11/03/22 12:52 Nucleated RBC % (auto) 0.3 % 11/03/22 12:52 Nucleated RBCs # 0.0 /100WBC 11/03/22 12:52 Sodium Cancelled 11/03/22 12:52 Potassium Cancelled 11/03/22 12:52 Chloride Cancelled 11/03/22 12:52 Carbon Dioxide Cancelled 11/03/22 12:52 Anion Gap Cancelled 11/03/22 12:52 BUN Cancelled 11/03/22 12:52 Creatinine Cancelled 11/03/22 12:52 GFR Calculation Cancelled 11/03/22 12:52 Glucose Cancelled 11/03/22 12:52 POC Glucose 300 mg/dL (70-110) H 11/03/22 12:52 Calculated Osmolality Cancelled 11/03/22 12:52 Lactic Acid 27.0 mmol/L (0.5-2.2) H* 11/03/22 12:52 Calcium Cancelled 11/03/22 12:52 Total Bilirubin Cancelled 11/03/22 12:52 AST Cancelled 11/03/22 12:52 ALT Cancelled 11/03/22 12:52 Alkaline Phosphatase Cancelled 11/03/22 12:52 Troponin T Baseline 96 ng/L (0-15) H 11/03/22 12:52 NT-Pro-B Natriuret Pep Cancelled 11/03/22 12:52 Total Protein Cancelled 11/03/22 12:52 Albumin Cancelled 11/03/22 12:52 Globulin Cancelled 11/03/22 12:52 TSH Cancelled 11/03/22 12:52 Discharge Plan Discharge Patient Disposition: Clinical Impression: Cardiac arrest, Stroke-like symptoms Condition: Stable Prescriptions: No Action citalopram 20 mg tablet 20 mg PO DAILY hydrochlorothiazide 12.5 mg capsule 12.5 mg PO QAM vitamin E (dl, acetate) 400 unit capsule 400 unit PO QAM ferrous sulfate [iron] 325 mg (65 mg iron) tablet 325 mg PO QAM cinnamon bark [Cinnamon] 500 mg capsule 500 mg PO QAM omega-3 fatty acids [Fish Oil Concentrate] 1,000 mg capsule 1,000 mg PO QAM amlodipine 5 mg tablet 5 mg PO QAM trazodone 50 mg tablet 25 mg PO BEDTIME nitroglycerin [Nitrostat] 0.4 mg tablet, sublingual 0.4 mg SUBLINGUAL Q5M PRN (Reason: Chest Pain) Lantus Solostar U-100 Insulin 100 unit/mL (3 mL) insulin pen 30 unit SUBCUT QAM lisinopril 40 mg tablet 40 mg PO QAM aspirin 81 mg tablet,delayed release (DR/EC) 81 mg PO QAM Apple Cider Vinegar Liquid 2 tbsp PO QAM albuterol sulfate 2.5 mg /3 mL (0.083 %) Solution For Nebulization 2.5 mg INHALATION Q4H PRN (Reason: Shortness Of Breath) famotidine 40 mg tablet 40 mg PO BEDTIME simvastatin 10 mg tablet 10 mg PO QAM Vitamin C 500 mg Tablet 500 mg PO QAM ProAir HFA 90 mcg/actuation Hfa Aerosol Inhaler 2 puff INHALATION QID PRN (Reason: Shortness Of Breath) aloe vera 25 mg Capsule 25 mg PO QAM metoprolol tartrate 25 mg tablet 12.5 mg PO BID Referrals: Cindy Schroeder DO [Primary Care Provider] - Probable Cause of Probable cause of : Sudden cardiac arrest Coding Level of Care Code ED Scrap Preparation Supervisor for g Fwd Exam Detailed
--- NOTE | 2022-11-03 13:04 | PC.NURSE ---
CPR was continued in ER, additional epi given, as well as bicarb, calcium, and NS. Pt was intubated by Dr. Lowery with 8.0 ETT, 24 at lip. ROSC was achieved at 1253. ETT placement confirmed with xray.
[2022-11-03 13:06] LABS: Basophils # 0.1 10^3/uL (0.0-0.1); Basophils % 0.3 %; Eosinophils # 0.2 10^3/uL (0.0-0.8); Eosinophils % 1.2 %; Hematocrit 63.1 % (42.0-52.0); Hemoglobin 20.2 g/dL (11.7-16.6); Lymphocytes # 1.6 10^3/uL (0.8-4.8); Lymphocytes % 11.2 %; Mean Corpuscular Volume 87.5 fl (80-94); Mean Platelet Volume 12.6 fL (7.4-10.4); Monocytes # 0.4 10^3/uL (0.2-0.9); Neutrophils # 11.95 10^3/uL (1.8-7.7); Neutrophils % 82.5 %; Nucleated Red Blood Cells % 0.3 %; Platelet Count 227 10^3/cmm (130-400); Red Blood Count 7.21 10^6/uL (4.1-5.3); Red Cell Distribution Width 16.9 % (12.1-15.1); White Blood Count 14.5 10^3/uL (4.0-10.0)
--- NOTE | 2022-11-03 13:17 | PC.NURSE ---
dodson catheter placed and OG placed. confirmed with auscultation, placed on low-intermittent suction per physician order
--- NOTE | 2022-11-03 13:24 | PC.NURSE ---
200mcg epi given by Dr. Lowery at 1321
--- NOTE | 2022-11-03 13:25 | PC.NURSE ---
1mg epi and amp bicarb given
--- NOTE | 2022-11-03 13:29 | PC.NURSE ---
unable to obtain automatic BP, manual BP attempted, unable to obtain. HR noted to decrease, Dr. Lowery remains at bedside and CPR was resumed.
[2022-11-03 13:30] LABS: Slide Review Slide Review Perform
[2022-11-03 13:31] LABS: Troponin(5th) Baseline 96 ng/L (0-15)
--- NOTE | 2022-11-03 14:05 | PC.NURSE ---
pt 1340, see house sup code flow sheet.
--- NOTE | 2022-11-03 14:41 | PC.NURSE ---
late note: TOD called by Dr. Lowery, pt at 1340
[2022-11-03 14:50] LABS: Reflex Lactate Order REFLEX LACTIC ORDERD
== END 2022-11-03 17:22 | disposition expired ==
PROVIDERS: Emergency Provider Emergency Medicine; PCP Family Medicine
DX: I46.9 Cardiac arrest, cause unspecified (principal); Z79.82 Long term (current) use of aspirin; Z79.4 Long term (current) use of insulin; I25.10 Atherosclerotic heart disease of native coronary artery without angina pectoris; E78.5 Hyperlipidemia, unspecified; E11.9 Type 2 diabetes mellitus without complications; R68.89 Other general symptoms and signs
CPT/HCPCS: 31500; 36416; 71045; 82962; 83605; 84484; 85025; 93005; 94002; 94799; 96361; 96374; 99285; J7030; J7060